=== PATIENT | female | born 2000 | race Caucasian/White ===

== ENCOUNTER 2024-03-26 07:27 | Outpatient (CLI) | payer OTHER, SELFPAY ==
[2024-03-28 02:12] LABS: Keppra (Levetiracetam) 8 ug/mL (10-40)
== END 2024-03-26 07:28 | disposition home or self-care (01) ==
PROVIDERS: PCP Physician Assistant Medical; Visit Provider Psychiatry & Neurology Neurology
DX: G40.909 Epilepsy, unspecified, not intractable, without status epilepticus (principal)
CPT/HCPCS: 36415; 80177